=== PATIENT | female | born 1975 | race Caucasian/White ===

== ENCOUNTER 2016-09-21 02:59 | Emergency (ER) | payer MEDICARE, OTHER ==
[2016-09-21] MEDS ORDERED: diphenhydrAMINE 50 MG Cap PO ONE (03:23)
[2016-09-21] MEDS ORDERED: Sulfamethoxazole/Trimethoprim 800-160 MG Tab PO ONE (03:23)
[2016-09-21] MEDS ORDERED: predniSONE 20 MG Tab PO ONE (03:25)
--- NOTE | 2016-09-21 03:52 | EDM.PDOC ---
ED HPI ENT - General Chief Complaint: ENT Problem Stated Complaint: TROUBLE SWALLOWING,NAUSEA Time Seen by Provider: 09/21/16 03:11 Source: Reports: Patient, Family History Limitations: Reports: No limitations - History of Present Illness INITIAL COMMENTS - FREE TEXT/NARRATIVE: 40 years old w f came with her SO to the ed due to difficulty swallowing. Pt was seen in the clinic monday -2 days ago-and was diagnosed with strep throat at that time. She was given PCN. Symptom Onset Date: 09/20/16 Symptom Onset Time: 16:00 Timing/Duration: Reports: Hour(s):, Gradual onset Severity: moderate Location: Reports: throat Quality: Reports: Pressure Improves with: Reports: None Worsens with: Reports: None - Related Data Allergies/ADRs: Allergies Allergy/AdvReac Type Severity Reaction Status Date / Time morphine Allergy Anxiety Verified 09/21/16 03:09 prochlorperazine edisylate Allergy Anxiety Verified 09/21/16 03:09 [From Compazine] prochlorperazine maleate Allergy Anxiety Verified 09/21/16 03:09 [From Compazine] Home Meds: Home Meds Ondansetron [Zofran ODT] 4 mg PO Q6H PRN #7 tab.dis 09/21/16 [Rx] Sulfamethoxazole/Trimethoprim [Bactrim Ds Tablet] 1 each PO BID #20 tablet 09/21 [Rx] predniSONE 10 mg PO DAILY #3 tablet 09/21/16 [Rx] Past Medical History Gastrointestinal History: Reports: Irritable bowel syndrome 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: Musculoskeletal History: Reports: Neck pain, chronic Neurological History: Reports: Migraines Psychiatric History: Reports: Anxiety, Depression, Panic attack - Infectious Disease History Infectious Disease History: Reports: Chicken pox, Influenza - Past Surgical History HEENT Surgical History: Reports: Oral surgery GI Surgical History: Reports: Colonoscopy, EGD, Other (see below) Other GI Surgeries/Procedures: exp lap, L ureter surgery Female Surgical History: Reports: section, Hysterectomy, Oophorectomy, Ureteral stent Social & Family History - Family History Family Medical History: Noncontributory - Tobacco Use Smoking Status *Q: Never Smoker Second Hand Smoke Exposure: No - Caffeine Use Caffeine Use: Reports: Coffee, Soda - Alcohol Use Days Per Week of Alcohol Use: 0 - Recreational Drug Use Recreational Drug Use: No ED ROS ENT - Review of Systems Review Of Systems: See Below Constitutional: Reports: decreased appetite HEENT: Reports: Throat pain, Throat swelling Respiratory: Reports: No Symptoms Cardiovascular: Reports: No symptoms Endocrine: Reports: no symptoms GI/Abdominal: Reports: No symptoms : Reports: no symptoms Musculoskeletal: Reports: no symptoms Skin: Reports: no symptoms Neurological: Reports: No Symptoms Psychiatric: Reports: No symptoms Hematologic/Lymphatic: Reports: no symptoms Immunologic: Reports: no symptoms ED EXAM, ENT - Physical Exam Exam: See Below Exam Limited By: No limitations General Appearance: alert, WD/WN, mild distress Eye Exam: bilateral eye: normal inspection Ears: normal external exam, normal canal, hearing grossly normal Nose: normal inspection, normal mucousa, no blood Mouth/Throat: Dry mucous membrane, Throat pain, Tongue swelling Head: atraumatic, normocephalic Neck: normal inspection, supple, non-tender, full range of motion Respiratory/Chest: no respiratory distress, lungs clear, normal breath sounds, no accessory muscle use, chest non-tender Cardiovascular: normal peripheral pulses, regular rate, rhythm, no edema, no JVD , no murmur GI/Abdominal: normal bowel sounds, soft, non tender, no organomegaly, no distention, no abnormal bruit (Female) Exam: Deferred Rectal (Female) Exam: Deferred Back: normal inspection, full range of motion Extremities: normal inspection, normal range of motion, non-tender, no pedal edema Neurological: alert, oriented, CN II-XII intact, normal cognition, normal gait Psychiatric: normal affect, normal mood Skin: Warm, Dry, Intact, Normal color, No rash Lymphatic: no adenopathy Course - Vital Signs Text/Narrative:: 40 years old w f came with her SO to the ed due to difficulty swallowing. Pt was seen in the clinic monday -2 days ago-and was diagnosed with strep throat at that time. She was given PCN PE: Tongue swollen, pharyngitis, throat not edematous Imaging: soft tissue neck: NAD Impression: Possible allergy to PCN Tx: Zofran, prednison, Bactrim, Benadryl Reexam: Improved Plan: D/C with instructions Last Recorded V/S: Last Vital Signs Temp 37.1 C 09/21/16 03:11 Pulse 95 09/21/16 04:06 Resp 18 09/21/16 04:06 BP 120/65 09/21/16 04:06 Pulse Ox 100 09/21/16 04:06 - Orders/Labs/Meds Orders: Active Orders 24 hr Category Date Time Status Neck Soft Tissue [CR] Stat Exams 09/21/16 03:26 Ordered Meds: Medications Discontinued Medications Generic Name Dose Route Start Last Admin Trade Name Freq PRN Reason Stop Dose Admin Diphenhydramine HCl 50 mg 09/21/16 03:23 09/21/16 03:30 Benadryl PO 09/21/16 03:24 50 mg ONETIME ONE Administration Ondansetron HCl 4 mg 09/21/16 03:56 09/21/16 04:00 Zofran Odt PO 09/21/16 03:57 4 mg ONETIME STA Administration Prednisone 40 mg 09/21/16 03:25 09/21/16 03:30 Prednisone PO 09/21/16 03:26 40 mg ONETIME ONE Administration Trimethoprim/Sulfamethoxazole 1 tab 09/21/16 03:23 09/21/16 03:31 Septra Ds PO 09/21/16 03:24 1 tab ONETIME ONE Administration Departure - Departure Time of Disposition: 03:56 Disposition: Home, Self-Care 01 Condition: good Clinical Impression: Nausea, Penicillin allergy Pharyngitis Qualifiers: Pharyngitis/tonsillitis etiology: streptococcus Qualified Code(s): J02.0 - Streptococcal pharyngitis Prescriptions: Ondansetron [Zofran ODT] 4 mg PO Q6H PRN #7 tab.dis PRN Reason: Nausea Sulfamethoxazole/Trimethoprim [Bactrim Ds Tablet] 1 each PO BID #20 tablet predniSONE 10 mg PO DAILY #3 tablet Instructions: Strep Throat, [id number], Nausea, Adult, [id number] Referrals: Radhika Abdalla, [employer] [Primary Care Provider] - Forms: ED Department Discharge Additional Instructions: Please take the meds as recommended, please follow up, come back if your symptoms get worse acutely. - My Orders Last 24 Hours: My Active Orders 09/21/16 03:26 Neck Soft Tissue [CR] Stat - Assessment/Plan Last 24 Hours: My Active Orders 09/21/16 03:26 Neck Soft Tissue [CR] Stat
[2016-09-21] MEDS ORDERED: Ondansetron 4 MG Tab.DIS PO STA (03:56)
[2016-09-21 04:06] VITALS: BP 120/65
--- NOTE | 2016-09-21 10:51 | CR ---
INDICATION: Difficulty in swallowing and breathing, question epiglottitis. NECK, SOFT TISSUE: A lateral view of the neck was obtained and revealed the epiglottis to have a normal appearance. The airway is patent. Prevertebral space appeared to be normal. Vertebral body and disk heights were maintained. IMPRESSION: Normal soft tissue neck. MTDD
== END 2016-09-21 04:10 | disposition home or self-care (01) ==
LOC: FB.ED 02:59
DX: J02.0 Streptococcal pharyngitis (principal); R11.0 Nausea; F41.9 Anxiety disorder, unspecified; F32.9 Major depressive disorder, single episode, unspecified; Z88.0 Allergy status to penicillin; Z98.890 Other specified postprocedural states; Z79.899 Other long term (current) drug therapy; Z90.710 Acquired absence of both cervix and uterus; Z88.5 Allergy status to narcotic agent; Z88.8 Allergy status to other drugs, medicaments and biological substances
CPT/HCPCS: 70360; 99283; A9270